=== PATIENT | male | born 1985 | race Caucasian/White ===

== ENCOUNTER 2017-09-28 08:34 | Emergency (ER) | payer SELFPAY ==
[~2017-09-28] VITALS: Ht 180.3 cm; Wt 68.0 kg
[~2017-09-28 08:34] MED LIST: ADVI200C; GABA300C3 PO; HYDR-3535 PO
[2017-09-28 08:37] VITALS: BP 146/94; PULSE 74; RESP 18; TEMP 98.1; O2SAT 97
[2017-09-28] MEDS ORDERED: CYCLOBENZAPRINE HCL 10 MG TAB PO ONE (09:00)
[2017-09-28] MEDS ORDERED: KETOROLAC TROMETHAMINE 60 MG/2 ML (IM) VIAL IM ONE (09:00)
--- NOTE | 2017-09-28 09:38 | RADRPT ---
EXAM DATE: 09/28/2017 9:28 AM EDT AGE/SEX: 32 years / Male INDICATIONS: Lower back pain, hurt playing basketball. CLINICAL DATA: This is the patient's initial encounter. Patient reports that signs and symptoms have been present for 2 days and indicates a pain score of 10/10. MEDICAL/SURGICAL HISTORY: . Lower back injury. . L4-5 shaved per pt. COMPARISON: [facility], SPINE LUMBAR COMPLETE W/OBLIQ, 03/07/2015. . FINDINGS: 5 non ribbed lumbar-type vertebral bodies with partial lumbarization of S1. Dextroscoliosis of the th oracolumbar spine which may be positional. Otherwise, vertebral body and disc heights are maintained without fracture or listhesis. CONCLUSION: 1. Mild dextroscoliosis of the thoracolumbar spine which may be positional. 2. Otherwise negative. No acute injury. Electronically signed by: Dustin Izquierdo MD 09/28/2017 9:36 AM EDT
[2017-09-28] MEDS ORDERED: ACETAMINOPHEN/HYDROcodone 325 MG/5 MG TAB PO ONE (10:45)
--- NOTE | 2017-09-28 11:38 | PD ---
HPI Chief Complaint: Pain: Acute or Chronic Time Seen by Provider: 08:48 Travel History International Travel<30 days: No Contact w/Intl Traveler<30days: No Traveled to known affect area: No History of Present Illness HPI Patient is a 32 year old male who comes in complaining of low back pain. He says the pain started while playing basketball yesterday. He says the pain is on the right side and is worse with movement. He denies numbness or tingling, but says he has some pain in his right leg. He has had surgery on L4/S1 in the past. He denies fever or chills or any difficulty urinating. Severity is mild to moderate. PFSH Past Medical History Blood Disorders: No Heart Rhythm Problems: No Cardiovascular Problems: No High Cholesterol: No Chest Pain: No Congestive Heart Failure: No Diminished Hearing: No Endocrine: No Genitourinary: No Immune Disorder: No Musculoskeletal: Yes (CHRONIC BACK- WRESTLING INJURY ) Neurologic: No Psychiatric: No Reproductive: No Respiratory: No Immunizations Current: No Tetanus Vaccination: < 5 Years Influenza Vaccination: No Past Surgical History Neurologic Surgery: Yes (Laminectomy 2014) Social History Alcohol Use: Yes (COUPLE TIMES PER MONTH) Tobacco Use: No Substance Use: No Allergies-Medications (Allergen,Severity, Reaction): Coded Allergies: peanut (Unverified Allergy, Severe, Anaphylaxis, 09/28/17) Reported Meds & Prescriptions Reported Meds & Active Scripts Active No Active Prescriptions or Reported Medications Review of Systems General / Constitutional: No: Fever, Chills HENT: No: Headaches, Lightheadedness Cardiovascular: No: Chest Pain or Discomfort Respiratory: No: Shortness of Breath Musculoskeletal: Positive: Pain Neurologic: No: Sensory Disturbance Physical Exam Narrative GENERAL: Awake and alert, in no acute distress. SKIN: Focused skin assessment warm/dry. No wounds or signs of infection. HEAD: Atraumatic. Normocephalic. EYES: Pupils equal and round. No scleral icterus. No injection or drainage. ENT: No nasal bleeding or discharge. Mucous membranes pink and moist. CARDIOVASCULAR: Regular rate and rhythm. No murmur appreciated. RESPIRATORY: No accessory muscle use. Clear to auscultation. Breath sounds equal bilaterally. MUSCULOSKELETAL: No obvious deformities. No clubbing. No cyanosis. No edema. No spinal tenderness. NEUROLOGICAL: Awake and alert. No obvious cranial nerve deficits. Motor grossly within normal limits. Normal speech. No saddle anesthesia. PSYCHIATRIC: Appropriate mood and affect; insight and judgment normal. Data Data Last Documented VS Vital Signs Date Time Temp Pulse Resp B/P (MAP) Pulse Ox O2 Delivery O2 Flow Rate FiO2 09/28/17 08:37 98.1 74 18 146/94 (111) 97 Orders Orders Spine, Lumbar Comp W/Obliq (09/28/17 ) Ketorolac Inj (Toradol Inj) (09/28/17 09:00) Cyclobenzaprine (Flexeril) (09/28/17 09:00) Acetamin-Hydrocod 325-5 Mg ([place] 5-325 (09/28/17 10:45) MDM Medical Decision Making Medical Screen Exam Complete: Yes Emergency Medical Condition: Yes Medical Record Reviewed: Yes Differential Diagnosis back strain vs arthritis vs sciatica Narrative Course Patient is a 32 year old male who comes in complaining of right sided back pain. Exam shows pain with movement, no vijay tenderness. XR performed Last 24 hours Impressions Lumbar Spine X-Ray 09/28/17 0000 Signed Impressions: CONCLUSION: 1. Mild dextroscoliosis of the thoracolumbar spine which may be positional. 2. Otherwise negative. No acute injury. Given pain medicine. Advised to stretch. Given a prescription for pain medicine. Advised to follow up with a primary care doctor. Advised to return as needed for any worsening symptoms. Diagnosis Primary Impression: Back pain Qualified Codes: M54.5 - Low back pain Referrals: [facility] Patient Instructions: Acute Low Back Pain (ED), General Instructions Additional Instructions: Follow-up with a primary care doctor. Take ibuprofen as needed for pain. He can take a [place] for severe pain. Return to the ED as needed for any worsening symptoms. Scripts Hydrocodone-Acetaminophen ([place]) 5 Mg-325 Mg Tab 1 TAB PO Q6H Y for PAIN, #7 TAB 0 Refills Prov: Yi Monroy MD 09/28/17 Disposition: 01 DISCHARGE HOME Condition: Stable Yi Monroy MD Sep 28, 2017 11:38
[2017-09-28] MEDS ORDERED: NORC5TAB PO (11:42)
== END 2017-09-28 12:13 | disposition home or self-care (01) ==
LOC: NEPE 08:34
DX: M54.5 Low back pain (principal)
CPT/HCPCS: 72110; 96372; 99283; J1885